=== PATIENT | female | born 1960 | race Caucasian/White ===

== ENCOUNTER 2017-02-19 05:50 | Inpatient (IN) | payer OTHER ==
[2017-02-19] MEDS ORDERED: CEFAZOLIN 2 GM/50 ML (PMX) 50 ML IVPB (06:00)
[2017-02-19] MEDS ORDERED: metroNIDAZOLE 500 MG/NS (PMX) 100 ML IVPB ×3 (06:00→12:30)
[2017-02-19] MEDS ORDERED: METHYLENE BLUE 1% 10 ML INJ (07:04)
[2017-02-19] MEDS ORDERED: VASOPRESSIN 20 UNITS INJ (07:04)
[2017-02-19] MEDS ORDERED: LIDOCAINE 2% (SDV) 5 ML INJ (07:41)
[2017-02-19] MEDS ORDERED: ROCURONIUM 50 MG INJ ×2 (07:41→09:12)
[2017-02-19] MEDS ORDERED: PROPOFOL 20 ML (07:41)
[2017-02-19] MEDS ORDERED: MIDAZOLAM 1 MG/ML 2 ML INJ (07:42)
[2017-02-19] MEDS ORDERED: D5-NS + KCL 20 MEQ 1,000 ML IV (08:00)
[2017-02-19] MEDS ORDERED: ROPIVACAINE 0.2% 20 ML VIAL (08:34)
[2017-02-19] MEDS ORDERED: CEFAZOLIN 1 GM INJ (08:46)
[2017-02-19] MEDS ORDERED: FAMOTIDINE 20 MG INJ (09:12)
[2017-02-19] MEDS ORDERED: DEXAMETHASONE 4 MG/ML 1 ML INJ (09:12)
[2017-02-19] MEDS ORDERED: ONDANSETRON 4 MG INJ ×2 (09:12→12:08)
[2017-02-19] MEDS ORDERED: ACETAMINOPHEN 1000MG/100ML IV 100 ML (09:15)
[2017-02-19] MEDS: THROMBIN 5000 UNIT VIAL (09:30)
[2017-02-19] MEDS ORDERED: SUGAMMADEX SODIUM 200 MG/2 ML VIAL IV (11:39)
[2017-02-19] MEDS ORDERED: HYDROmorphONE (0.2 MG/ML) 10ML SYG IV (12:08)
[2017-02-19] MEDS: ONDANSETRON 4 MG INJ IV (12:11)
[2017-02-19] MEDS: HYDROmorphONE (0.2 MG/ML) 10ML SYG IV ×2 (12:11→12:40)
[2017-02-19] MEDS ORDERED: CEFAZOLIN 1 GM in SOD CHLORIDE 0.9% 100 ML IVPB (12:30)
[2017-02-19] MEDS ORDERED: DIPHENHYDRAMINE 50 MG INJ IV (12:30)
[2017-02-19 12:40] LABS: ADD MAN DIFF? NO
[2017-02-19 12:43] LABS: WHITE BLOOD COUNT 6.8 10^3/ul (4.8-10.8)
[2017-02-19 12:43] LABS: BASOPHILS % 0.4 % (0.0-2.0); HEMATOCRIT 36.2 % (37.0-47.0); HEMOGLOBIN 12.3 g/dl (12.0-16.0); LYMPHOCYTES % 13.9 % (15.0-51.0); MEAN CORPUSCULAR HEMOGLOBIN 34.7 pg (29.0-33.0); MEAN CORPUSCULAR VOLUME 102.3 fl (82.0-101.0); MEAN PLATELET VOLUME 8.8 fl (7.4-10.4); MONOCYTE # 0.3 10^3/ul (0.3-0.9); MONOCYTES % 3.8 % (0.0-11.0); NEUTROPHIL # 5.6 10^3/ul (1.6-7.5); NEUTROPHILS % 81.6 % (39.0-77.0); PLATELET COUNT 346 10^3/UL (140-415); RED BLOOD COUNT 3.54 10^6/ul (4.20-5.40); RED CELL DISTRIBUTION WIDTH 15.6 % (11.5-14.5)
[2017-02-19 13:21] LABS: ANION GAP 14 (8-16); BLOOD UREA NITROGEN 13 mg/dl (7-20); CALCIUM 8.8 mg/dl (8.4-10.2); CARBON DIOXIDE 27 mmol/L (21-31); CHLORIDE 104 mmol/L (97-110); CREATININE 0.54 mg/dl (0.44-1.00); GLUCOSE 158 mg/dl (70-220); POTASSIUM 3.3 mmol/L (3.5-5.1); SODIUM 142 mmol/L (135-144)
[2017-02-19] MEDS: POTASSIUM CHLORIDE 20 MEQ in LACTATED RINGER'S 1,000 ML IV ×2 (15:59→19:44)
[2017-02-19] MEDS: CEFAZOLIN 1 GM/50 ML (PMX) 50 ML IVPB (17:01)
[2017-02-19] MEDS: HYDROmorphONE 0.5 MG/0.5 ML SYG IV ×3 (17:01→23:05)
[2017-02-19] MEDS: metroNIDAZOLE 500 MG/NS (PMX) 100 ML IVPB (18:05)
[2017-02-19] MEDS: FAMOTIDINE 20 MG INJ IV (20:46)
[2017-02-19] MEDS: POTASSIUM CHLORIDE 20 MEQ in DEXTROSE 5% 100 ML IVPB (20:47)
[2017-02-20] MEDS: CEFAZOLIN 1 GM/50 ML (PMX) 50 ML IVPB ×2 (00:09→09:06)
[2017-02-20] MEDS: metroNIDAZOLE 500 MG/NS (PMX) 100 ML IVPB ×2 (01:19→09:57)
[2017-02-20] MEDS: POTASSIUM CHLORIDE 20 MEQ in LACTATED RINGER'S 1,000 ML IV ×5 (02:28→20:45)
[2017-02-20 05:20] LABS: ADD MAN DIFF? NO
[2017-02-20 05:41] LABS: INR 1.15; PROTIME 14.9 Sec (11.9-14.9); PT RATIO 1.2
[2017-02-20 06:04] LABS: ALANINE AMINOTRANSFERASE 25 IU/L (13-69); ALBUMIN/GLOBULIN RATIO 0.96; ALKALINE PHOSPHATASE 66 IU/L (42-121); ANION GAP 12 (8-16); ASPARTATE AMINO TRANSFERASE 23 IU/L (15-46); BILIRUBIN,INDIRECT 0.4 mg/dl (0-1.1); BILIRUBIN,TOTAL 0.4 mg/dl (0.2-1.3); BLOOD UREA NITROGEN 16 mg/dl (7-20); CALCIUM 8.7 mg/dl (8.4-10.2); CARBON DIOXIDE 29 mmol/L (21-31); CHLORIDE 103 mmol/L (97-110); CREATININE 0.66 mg/dl (0.44-1.00); GLUCOSE 130 mg/dl (70-220); POTASSIUM 4.3 mmol/L (3.5-5.1); SODIUM 140 mmol/L (135-144); TOTAL PROTEIN 6.1 g/dl (6.1-8.1)
[2017-02-20] MEDS: HYDROmorphONE 0.5 MG/0.5 ML SYG IV ×5 (06:24→20:52)
[2017-02-20 07:46] LABS: WHITE BLOOD COUNT 11.7 10^3/ul (4.8-10.8)
[2017-02-20 07:46] LABS: BASOPHILS % 0.1 % (0.0-2.0); HEMATOCRIT 31.3 % (37.0-47.0); HEMOGLOBIN 10.5 g/dl (12.0-16.0); LYMPHOCYTES # 1.5 10^3/ul (0.8-2.9); LYMPHOCYTES % 12.6 % (15.0-51.0); MEAN CORPUSCULAR HEMOGLOBIN 34.2 pg (29.0-33.0); MEAN CORPUSCULAR HGB CONC 33.5 g/dl (32.0-37.0); MEAN PLATELET VOLUME 9.1 fl (7.4-10.4); MONOCYTE # 1.3 10^3/ul (0.3-0.9); MONOCYTES % 11.1 % (0.0-11.0); NEUTROPHIL # 8.9 10^3/ul (1.6-7.5); NEUTROPHILS % 75.9 % (39.0-77.0); PLATELET COUNT 309 10^3/UL (140-415); RED BLOOD COUNT 3.07 10^6/ul (4.20-5.40); RED CELL DISTRIBUTION WIDTH 16.1 % (11.5-14.5)
[2017-02-20 07:49] LABS: POSITIVE DIFF @See below
[2017-02-20] MEDS: FAMOTIDINE 20 MG INJ IV ×2 (09:11→20:44)
[2017-02-21] MEDS: POTASSIUM CHLORIDE 20 MEQ in LACTATED RINGER'S 1,000 ML IV ×2 (04:51→18:34)
[2017-02-21] MEDS: HYDROmorphONE 0.5 MG/0.5 ML SYG IV (04:53)
[2017-02-21 05:18] LABS: ADD MAN DIFF? NO
[2017-02-21 05:25] LABS: ABNORMAL IP MESSAGE 1; BASOPHILS % 0.2 % (0.0-2.0); EOSINOPHILS % 0.2 % (0.0-7.0); HEMATOCRIT 30.4 % (37.0-47.0); HEMOGLOBIN 10.3 g/dl (12.0-16.0); LYMPHOCYTES # 3.5 10^3/ul (0.8-2.9); LYMPHOCYTES % 21.1 % (15.0-51.0); MEAN CORPUSCULAR HEMOGLOBIN 34.7 pg (29.0-33.0); MEAN CORPUSCULAR HGB CONC 33.9 g/dl (32.0-37.0); MEAN CORPUSCULAR VOLUME 102.4 fl (82.0-101.0); MONOCYTE # 1.8 10^3/ul (0.3-0.9); MONOCYTES % 10.7 % (0.0-11.0); NEUTROPHIL # 11.2 10^3/ul (1.6-7.5); NEUTROPHILS % 67.3 % (39.0-77.0); PLATELET COUNT 270 10^3/UL (140-415); RED BLOOD COUNT 2.97 10^6/ul (4.20-5.40); RED CELL DISTRIBUTION WIDTH 15.7 % (11.5-14.5)
[2017-02-21 05:25] LABS: WHITE BLOOD COUNT 16.7 10^3/ul (4.8-10.8)
[2017-02-21 05:26] LABS: POSITIVE DIFF @See below
[2017-02-21 06:07] LABS: ANION GAP 10 (8-16); BLOOD UREA NITROGEN 10 mg/dl (7-20); CALCIUM 8.5 mg/dl (8.4-10.2); CARBON DIOXIDE 30 mmol/L (21-31); CHLORIDE 97 mmol/L (97-110); CREATININE 0.63 mg/dl (0.44-1.00); GLUCOSE 85 mg/dl (70-220); SODIUM 133 mmol/L (135-144)
[2017-02-21] MEDS: FAMOTIDINE 20 MG INJ IV ×2 (09:56→21:02)
[2017-02-21] MEDS: SOD CHLORIDE 0.9% 250 ML IV (12:48)
[2017-02-21] MEDS: SOD CHLORIDE 0.9% 1,000 ML IV (13:55)
[2017-02-21] MEDS: HYDROCODONE/APAP (5/325) TAB PO (13:55)
[2017-02-21 14:05] LABS: LACTIC ACID 1.2 mmol/L (0.5-2.0)
[2017-02-21] MEDS: KETOROLAC 30 MG INJ IV (14:42)
[2017-02-22] MEDS: HYDROmorphONE 0.5 MG/0.5 ML SYG IV ×3 (00:58→23:35)
[2017-02-22] MEDS: POTASSIUM CHLORIDE 20 MEQ in LACTATED RINGER'S 1,000 ML IV ×3 (01:32→13:52)
[2017-02-22 06:03] LABS: ADD MAN DIFF? NO
[2017-02-22 06:08] LABS: BASOPHILS % 0.3 % (0.0-2.0); EOSINOPHILS # 0.2 10^3/ul (0.0-0.5); EOSINOPHILS % 1.6 % (0.0-7.0); HEMOGLOBIN 9.1 g/dl (12.0-16.0); LYMPHOCYTES # 1.8 10^3/ul (0.8-2.9); LYMPHOCYTES % 16.4 % (15.0-51.0); MEAN CORPUSCULAR HGB CONC 33.7 g/dl (32.0-37.0); MEAN CORPUSCULAR VOLUME 103.8 fl (82.0-101.0); MEAN PLATELET VOLUME 9.2 fl (7.4-10.4); MONOCYTE # 1.2 10^3/ul (0.3-0.9); NEUTROPHIL # 7.7 10^3/ul (1.6-7.5); NEUTROPHILS % 70.2 % (39.0-77.0); PLATELET COUNT 232 10^3/UL (140-415); RED CELL DISTRIBUTION WIDTH 15.6 % (11.5-14.5)
[2017-02-22 06:08] LABS: WHITE BLOOD COUNT 10.9 10^3/ul (4.8-10.8)
[2017-02-22] MEDS: FAMOTIDINE 20 MG INJ IV ×2 (08:38→23:41)
[2017-02-22] MEDS: HYDROCODONE/APAP (5/325) TAB PO ×3 (08:43→21:14)
[2017-02-23] MEDS: HYDROCODONE/APAP (5/325) TAB PO ×5 (01:09→22:26)
[2017-02-23] MEDS: POTASSIUM CHLORIDE 20 MEQ in LACTATED RINGER'S 1,000 ML IV ×2 (01:09→09:52)
[2017-02-23 05:21] LABS: ADD MAN DIFF? NO
[2017-02-23 05:31] LABS: WHITE BLOOD COUNT 8.6 10^3/ul (4.8-10.8)
[2017-02-23 05:31] LABS: BASOPHILS % 0.2 % (0.0-2.0); EOSINOPHILS # 0.3 10^3/ul (0.0-0.5); EOSINOPHILS % 3.3 % (0.0-7.0); HEMATOCRIT 25.7 % (37.0-47.0); HEMOGLOBIN 8.8 g/dl (12.0-16.0); LYMPHOCYTES # 1.8 10^3/ul (0.8-2.9); LYMPHOCYTES % 21.2 % (15.0-51.0); MEAN CORPUSCULAR HEMOGLOBIN 34.9 pg (29.0-33.0); MEAN CORPUSCULAR HGB CONC 34.2 g/dl (32.0-37.0); MEAN PLATELET VOLUME 9.3 fl (7.4-10.4); MONOCYTE # 1.1 10^3/ul (0.3-0.9); MONOCYTES % 12.9 % (0.0-11.0); NEUTROPHIL # 5.3 10^3/ul (1.6-7.5); NEUTROPHILS % 62.2 % (39.0-77.0); PLATELET COUNT 253 10^3/UL (140-415); RED BLOOD COUNT 2.52 10^6/ul (4.20-5.40); RED CELL DISTRIBUTION WIDTH 15.1 % (11.5-14.5)
[2017-02-23 06:12] LABS: ANION GAP 10 (8-16); BLOOD UREA NITROGEN 9 mg/dl (7-20); CALCIUM 8.3 mg/dl (8.4-10.2); CARBON DIOXIDE 31 mmol/L (21-31); CHLORIDE 100 mmol/L (97-110); CREATININE 0.54 mg/dl (0.44-1.00); GLUCOSE 93 mg/dl (70-220); POTASSIUM 4.3 mmol/L (3.5-5.1); SODIUM 137 mmol/L (135-144)
[2017-02-23] MEDS: FAMOTIDINE 20 MG INJ IV ×2 (08:57→20:08)
[2017-02-24 06:16] LABS: ADD MAN DIFF? NO
[2017-02-24 06:21] LABS: WHITE BLOOD COUNT 8.4 10^3/ul (4.8-10.8)
[2017-02-24 06:21] LABS: BASOPHILS % 0.2 % (0.0-2.0); EOSINOPHILS # 0.2 10^3/ul (0.0-0.5); EOSINOPHILS % 2.4 % (0.0-7.0); HEMATOCRIT 29.9 % (37.0-47.0); HEMOGLOBIN 10.1 g/dl (12.0-16.0); LYMPHOCYTES # 2.1 10^3/ul (0.8-2.9); MEAN CORPUSCULAR HEMOGLOBIN 34.1 pg (29.0-33.0); MEAN CORPUSCULAR HGB CONC 33.8 g/dl (32.0-37.0); MONOCYTES % 11.7 % (0.0-11.0); NEUTROPHIL # 5.1 10^3/ul (1.6-7.5); NEUTROPHILS % 60.3 % (39.0-77.0); PLATELET COUNT 301 10^3/UL (140-415); RED BLOOD COUNT 2.96 10^6/ul (4.20-5.40); RED CELL DISTRIBUTION WIDTH 14.6 % (11.5-14.5)
[2017-02-24 07:05] LABS: ANION GAP 13 (8-16); BLOOD UREA NITROGEN 10 mg/dl (7-20); CALCIUM 8.6 mg/dl (8.4-10.2); CARBON DIOXIDE 31 mmol/L (21-31); CHLORIDE 99 mmol/L (97-110); CREATININE 0.67 mg/dl (0.44-1.00); GLUCOSE 97 mg/dl (70-220); POTASSIUM 4.3 mmol/L (3.5-5.1); SODIUM 139 mmol/L (135-144)
[2017-02-24] MEDS: FAMOTIDINE 20 MG INJ IV (08:28)
[2017-02-24] MEDS ORDERED: HYDROmorphONE 2 MG TAB PO (11:00)
[2017-02-24] MEDS: HYDROCODONE/APAP (5/325) TAB PO (11:31)
[2017-02-24] MEDS: HEPARIN (100 UNITS/ML) 5 ML SYG CATHETER (18:03)
[2017-02-24] MEDS ORDERED: FAMOTIDINE 20 MG TAB PO (21:00)
== END 2017-02-24 18:20 | disposition home or self-care (01) | DRG 749 ==
LOC: REC 05:50 → MS1 02-21 22:25
PROC: 0DBV0ZX Excision of Mesentery, Open Approach, Diagnostic (ICD-10-PCS; principal; 2017-02-19 07:30)
PROC: 0DBW0ZX Excision of Peritoneum, Open Approach, Diagnostic (ICD-10-PCS; 2017-02-19 07:30)
PROC: 0BBT0ZX Excision of Diaphragm, Open Approach, Diagnostic (ICD-10-PCS; 2017-02-19 07:30)
PROC: 0WBF0ZX Excision of Abdominal Wall, Open Approach, Diagnostic (ICD-10-PCS; 2017-02-19 07:30)
PROC: 0WBH0ZX Excision of Retroperitoneum, Open Approach, Diagnostic (ICD-10-PCS; 2017-02-19 07:30)
PROC: 07BD0ZX Excision of Aortic Lymphatic, Open Approach, Diagnostic (ICD-10-PCS; 2017-02-19 07:30)
DX: C56.9 Malignant neoplasm of unspecified ovary (principal); C79.9 Secondary malignant neoplasm of unspecified site; K74.60 Unspecified cirrhosis of liver; I95.9 Hypotension, unspecified; E87.6 Hypokalemia; Z79.899 Other long term (current) drug therapy; Z90.710 Acquired absence of both cervix and uterus; Z90.81 Acquired absence of spleen; Z90.79 Acquired absence of other genital organ(s); Z90.722 Acquired absence of ovaries, bilateral; R50.9 Fever, unspecified; K43.9 Ventral hernia without obstruction or gangrene
CPT/HCPCS: 71010; 80048; 80053; 82962; 83605; 85025; 85610; 86850; 86900; 86901; 86920; 87040; 87070; 87086; 88307; 88309; 88331; 88341; 88342

== ENCOUNTER 2017-04-20 13:01 | Inpatient (IN) | payer OTHER ==
[2017-04-20] MEDS ORDERED: NITROGLYCERIN (SL) 0.4 MG TAB SL (17:30)
[2017-04-20] MEDS: morphine 4 MG/ML VIAL IV (17:37)
[2017-04-20] MEDS: ONDANSETRON 4 MG INJ IV (17:37)
[2017-04-20] MEDS: ASPIRIN 81 MG TAB PO (17:37)
[2017-04-20] MEDS: NITROGLYCERIN 2% 1 GM OINT PKT TD (17:38)
[2017-04-20 18:09] LABS: ABNORMAL IP MESSAGE 1; HEMATOCRIT 34.1 % (37.0-47.0); HEMOGLOBIN 12.1 g/dl (12.0-16.0); INR 0.97; MEAN CORPUSCULAR HEMOGLOBIN 32.2 pg (29.0-33.0); MEAN CORPUSCULAR HGB CONC 35.5 g/dl (32.0-37.0); MEAN CORPUSCULAR VOLUME 90.7 fl (82.0-101.0); PLATELET COUNT 36 10^3/UL (140-415); RED BLOOD COUNT 3.76 10^6/ul (4.20-5.40); RED CELL DISTRIBUTION WIDTH 13.5 % (11.5-14.5)
[2017-04-20 18:09] LABS: WHITE BLOOD COUNT 2.3 10^3/ul (4.8-10.8)
[2017-04-20 18:10] LABS: POSITIVE DIFF @See below
[2017-04-20 18:11] LABS: ADD MAN DIFF? YES; PARTIAL THROMBOPLASTIN TIME 47.7 Sec (25.0-35.0); PATH REVIEW? YES
[2017-04-20 18:12] LABS: ANION GAP 14 (8-16); BLOOD UREA NITROGEN 17 mg/dl (7-20); CALCIUM 9.2 mg/dl (8.4-10.2); CARBON DIOXIDE 26 mmol/L (21-31); CHLORIDE 99 mmol/L (97-110); GLUCOSE 141 mg/dl (70-220); POTASSIUM 3.6 mmol/L (3.5-5.1); SODIUM 135 mmol/L (135-144)
[2017-04-20 18:17] LABS: D-DIMER 2245.38 ng/ml (<460)
[2017-04-20 18:23] LABS: TROPONIN-I < 0.012 ng/ml (0.00-0.12)
[2017-04-20] MEDS: SOD CHLORIDE 0.9% 1,000 ML IV (18:26)
[2017-04-20 18:59] LABS: BASOPHILS % (M) 1 % (0-2); LYMPHOCYTES #M 0.6 10^3/ul (0.8-2.9); LYMPHOCYTES % (M) 29 % (15-51); MONOCYTES % (M) 2 % (0-11); PLATELET ESTIMATE SIG DECREASED; PLATELET MORPHOLOGY COMMENT @See below; REACTIVE LYMPHOCYTES% (M) 1 % (0-0); SEGMENTED NEUTROPHILS (M) % 67 % (39-77); SMUDGE%M 2 % (0-0)
[2017-04-20] MEDS: IOHEXOL 350MG/ML 50 ML BTL (19:32)
[2017-04-20] MEDS: SOD CHLORIDE 0.9% 100 ML (20:14)
[2017-04-20] MEDS: IOHEXOL 100 ML (20:14)
[2017-04-20] MEDS: HYDROmorphONE 1 MG/ML SYG IV (21:16)
[2017-04-20] MEDS ORDERED: ONDANSETRON 4 MG INJ IV (21:30)
[2017-04-20] MEDS ORDERED: ACETAMINOPHEN 325 MG TAB PO (21:30)
[2017-04-20 23:27] LABS: CREATINE KINASE 27 IU/L (23-200)
[2017-04-20 23:40] LABS: CK INDEX 0.8
[2017-04-20 23:54] LABS: CK-MB < 0.22 ng/ml (0.0-2.4); TROPONIN-I < 0.012 ng/ml (0.00-0.12)
[2017-04-21 05:29] LABS: WHITE BLOOD COUNT 2.4 10^3/ul (4.8-10.8)
[2017-04-21 05:29] LABS: ABNORMAL IP MESSAGE 1; HEMATOCRIT 30.2 % (37.0-47.0); HEMOGLOBIN 10.6 g/dl (12.0-16.0); MEAN CORPUSCULAR HGB CONC 35.1 g/dl (32.0-37.0); MEAN CORPUSCULAR VOLUME 91.2 fl (82.0-101.0); MEAN PLATELET VOLUME 12.4 fl (7.4-10.4); PLATELET COUNT 51 10^3/UL (140-415); RED BLOOD COUNT 3.31 10^6/ul (4.20-5.40); RED CELL DISTRIBUTION WIDTH 13.7 % (11.5-14.5)
[2017-04-21 05:32] LABS: POSITIVE DIFF @See below
[2017-04-21 05:33] LABS: ADD MAN DIFF? YES
[2017-04-21 05:50] LABS: CREATINE KINASE 36 IU/L (23-200)
[2017-04-21 05:59] LABS: ANION GAP 11 (8-16); BLOOD UREA NITROGEN 14 mg/dl (7-20); CALCIUM 8.9 mg/dl (8.4-10.2); CARBON DIOXIDE 29 mmol/L (21-31); CHLORIDE 102 mmol/L (97-110); GLUCOSE 109 mg/dl (70-220); POTASSIUM 4.5 mmol/L (3.5-5.1); SODIUM 137 mmol/L (135-144)
[2017-04-21 06:02] LABS: CK INDEX 0.6
[2017-04-21 06:31] LABS: TROPONIN-I < 0.012 ng/ml (0.00-0.12)
[2017-04-21 06:39] LABS: CK-MB < 0.22 ng/ml (0.0-2.4); TROPONIN-I < 0.012 ng/ml (0.00-0.12)
[2017-04-21 07:35] LABS: ANISOCYTOSIS 1+ (0-0); LYMPHOCYTES % (M) 85 % (15-51); PLATELET ESTIMATE DECREASED; POLYCHROMASIA 1+ (0-0); REACTIVE LYMPHOCYTES% (M) 3 % (0-0); SEGMENTED NEUTROPHILS (M) % 12 % (39-77); SMUDGE%M 24 % (0-0)
[2017-04-21] MEDS: ENOXAPARIN 30 MG/0.3 ML SYG SC (08:35)
[2017-04-21] MEDS ORDERED: morphine 2 MG INJ IV (14:00)
[2017-04-21] MEDS ORDERED: ACETAMINOPHEN 500 MG TAB PO (14:00)
[2017-04-21] MEDS: HYDROCODONE/APAP (5/325) TAB PO ×2 (14:25→20:16)
[2017-04-22 10:16] LABS: WHITE BLOOD COUNT 1.7 10^3/ul (4.8-10.8)
[2017-04-22 10:16] LABS: ABNORMAL IP MESSAGE 1; HEMATOCRIT 37.3 % (37.0-47.0); HEMOGLOBIN 12.7 g/dl (12.0-16.0); MEAN PLATELET VOLUME 10.5 fl (7.4-10.4); RED BLOOD COUNT 3.97 10^6/ul (4.20-5.40); RED CELL DISTRIBUTION WIDTH 13.6 % (11.5-14.5)
[2017-04-22 10:39] LABS: ALANINE AMINOTRANSFERASE 23 IU/L (13-69); ALBUMIN 4.6 g/dl (3.3-4.9); ALBUMIN/GLOBULIN RATIO 1.15; ALKALINE PHOSPHATASE 107 IU/L (42-121); ANION GAP 18 (8-16); ASPARTATE AMINO TRANSFERASE 26 IU/L (15-46); BILIRUBIN,INDIRECT 0.3 mg/dl (0-1.1); BILIRUBIN,TOTAL 0.3 mg/dl (0.2-1.3); BLOOD UREA NITROGEN 15 mg/dl (7-20); CALCIUM 9.9 mg/dl (8.4-10.2); CARBON DIOXIDE 25 mmol/L (21-31); CHLORIDE 103 mmol/L (97-110); CHOL/HDL RATIO 3.1 RATIO; CHOLESTEROL 199 mg/dl (100-200); CREATININE 0.54 mg/dl (0.44-1.00); GLUCOSE 89 mg/dl (70-220); HDL CHOLESTEROL 63 mg/dl (37-92); LDL CHOLESTEROL,CALCULATED 110 mg/dl; POTASSIUM 4.8 mmol/L (3.5-5.1); SODIUM 141 mmol/L (135-144); TOTAL PROTEIN 8.6 g/dl (6.1-8.1); TRIGLYCERIDES 131 mg/dl (0-149)
[2017-04-22 10:55] LABS: POSITIVE DIFF @See below
[2017-04-22 11:15] LABS: ADD MAN DIFF? YES
[2017-04-22 11:19] LABS: PLATELET COUNT 14 10^3/UL (140-415)
[2017-04-22 11:23] LABS: PATH REVIEW? YES
[2017-04-22 13:42] LABS: BASOPHILS % (M) 0 % (0-2); LYMPHOCYTES #M 1.2 10^3/ul (0.8-2.9); LYMPHOCYTES % (M) 75 % (15-51); MONOCYTES % (M) 1 % (0-11); MYELOCYTES % (M) 0 % (0-0); PLATELET ESTIMATE SIG DECREASED; POLYCHROMASIA 3+ (0-0); REACTIVE LYMPHOCYTES #M 0.1 10^3/ul (0.0-0.0); REACTIVE LYMPHOCYTES% (M) 8 % (0-0); SEGMENTED NEUTROPHILS (M) % 16 % (39-77); SMUDGE%M 4 % (0-0); TARGET CELLS 2+ (0-0)
[2017-04-22] MEDS: SOD CHLORIDE 0.9% 250 ML IV* (14:22)
[2017-04-22] MEDS: HYDROCODONE/APAP (5/325) TAB PO ×2 (14:57→23:36)
[2017-04-22 21:01] LABS: TYPE AND SCREEN 1 1
[2017-04-23 05:30] LABS: WHITE BLOOD COUNT 1.7 10^3/ul (4.8-10.8)
[2017-04-23 05:30] LABS: ABNORMAL IP MESSAGE 1; HEMATOCRIT 30.1 % (37.0-47.0); HEMOGLOBIN 10.4 g/dl (12.0-16.0); MEAN CORPUSCULAR HEMOGLOBIN 31.5 pg (29.0-33.0); MEAN CORPUSCULAR HGB CONC 34.6 g/dl (32.0-37.0); MEAN CORPUSCULAR VOLUME 91.2 fl (82.0-101.0); MEAN PLATELET VOLUME 9.4 fl (7.4-10.4); PLATELET COUNT 81 10^3/UL (140-415); RED CELL DISTRIBUTION WIDTH 13.4 % (11.5-14.5)
[2017-04-23 05:35] LABS: ADD MAN DIFF? YES; POSITIVE DIFF @See below
[2017-04-23 05:57] LABS: ANION GAP 13 (8-16); BLOOD UREA NITROGEN 18 mg/dl (7-20); CALCIUM 9.3 mg/dl (8.4-10.2); CARBON DIOXIDE 30 mmol/L (21-31); CHLORIDE 104 mmol/L (97-110); CREATININE 0.61 mg/dl (0.44-1.00); GLUCOSE 96 mg/dl (70-220); POTASSIUM 4.1 mmol/L (3.5-5.1); SODIUM 143 mmol/L (135-144)
[2017-04-23 07:46] LABS: LYMPHOCYTES #M 1.6 10^3/ul (0.8-2.9); LYMPHOCYTES % (M) 98 % (15-51); PLATELET ESTIMATE DECREASED; POLYCHROMASIA 2+ (0-0); SEGMENTED NEUTROPHILS (M) % 2 % (39-77); SMUDGE%M 8 % (0-0)
[2017-04-23 16:58] LABS: PATH REVIEW CH
[2017-04-23] MEDS: HYDROCODONE/APAP (5/325) TAB PO (21:52)
[2017-04-24 05:42] LABS: WHITE BLOOD COUNT 1.9 10^3/ul (4.8-10.8)
[2017-04-24 05:42] LABS: ABNORMAL IP MESSAGE 1; HEMATOCRIT 30.8 % (37.0-47.0); HEMOGLOBIN 10.5 g/dl (12.0-16.0); MEAN CORPUSCULAR HEMOGLOBIN 31.4 pg (29.0-33.0); MEAN CORPUSCULAR HGB CONC 34.1 g/dl (32.0-37.0); MEAN CORPUSCULAR VOLUME 92.2 fl (82.0-101.0); MEAN PLATELET VOLUME 9.8 fl (7.4-10.4); PLATELET COUNT 59 10^3/UL (140-415); RED BLOOD COUNT 3.34 10^6/ul (4.20-5.40); RED CELL DISTRIBUTION WIDTH 13.2 % (11.5-14.5)
[2017-04-24 06:00] LABS: ANION GAP 13 (8-16); BLOOD UREA NITROGEN 23 mg/dl (7-20); CALCIUM 9.4 mg/dl (8.4-10.2); CARBON DIOXIDE 28 mmol/L (21-31); CHLORIDE 104 mmol/L (97-110); CREATININE 0.63 mg/dl (0.44-1.00); GLUCOSE 97 mg/dl (70-220); POTASSIUM 3.9 mmol/L (3.5-5.1); SODIUM 141 mmol/L (135-144)
[2017-04-24 06:48] LABS: ADD MAN DIFF? YES; POSITIVE DIFF @See below
[2017-04-24 09:27] LABS: BASOPHILS % (M) 1 % (0-2); EOSINOPHILS % (M) 3 % (0-7); GIANT THROMBO% (M) 2 % (0-0); LYMPHOCYTES #M 1.7 10^3/ul (0.8-2.9); LYMPHOCYTES % (M) 90 % (15-51); MONOCYTES % (M) 1 % (0-11); PLATELET ESTIMATE DECREASED; POLYCHROMASIA 3+ (0-0); SEGMENTED NEUTROPHILS (M) % 5 % (39-77)
[2017-04-24] MEDS: HEPARIN (100 UNITS/ML) 5 ML SYG CATHETER ×2 (17:00)
== END 2017-04-24 17:33 | disposition home or self-care (01) | DRG 313 ==
LOC: E/R 13:01 → MS3 21:15
PROC: 30233R1 Transfusion of Nonautologous Platelets into Peripheral Vein, Percutaneous Approach (ICD-10-PCS; principal; 2017-04-22)
DX: R07.9 Chest pain, unspecified (principal); D61.810 Antineoplastic chemotherapy induced pancytopenia; C56.9 Malignant neoplasm of unspecified ovary; M48.02 Spinal stenosis, cervical region; I10 Essential (primary) hypertension; R06.02 Shortness of breath
CPT/HCPCS: 36415; 36430; 71045; 71275; 72142; 80048; 80053; 80061; 82550; 82553; 84484; 85025; 85378; 85610; 85730; 86850; 86900; 86901; 93005; 93306; 96374; 96375; 99285-25

== ENCOUNTER 2018-02-20 12:40 | Observation (INO) | payer OTHER ==
[2018-02-20 14:26] LABS: ADD MAN DIFF? NO
[2018-02-20 14:28] LABS: BASOPHIL # 0.1 10^3/ul (0.0-0.1); BASOPHILS % 0.4 % (0.0-2.0); EOSINOPHILS % 0.3 % (0.0-7.0); HEMATOCRIT 39.4 % (37.0-47.0); HEMOGLOBIN 13.6 g/dl (12.0-16.0); LYMPHOCYTES # 2.4 10^3/ul (0.8-2.9); LYMPHOCYTES % 19.3 % (15.0-51.0); MEAN CORPUSCULAR HGB CONC 34.5 g/dl (32.0-37.0); MEAN CORPUSCULAR VOLUME 112.9 fl (82.0-101.0); MEAN PLATELET VOLUME 8.7 fl (7.4-10.4); MONOCYTE # 1.4 10^3/ul (0.3-0.9); MONOCYTES % 10.8 % (0.0-11.0); NEUTROPHIL # 8.7 10^3/ul (1.6-7.5); NEUTROPHILS % 68.9 % (39.0-77.0); NUCLEATED RED BLOOD CELLS # 0.6 10^3/ul (0.0-0.0); NUCLEATED RED BLOOD CELLS% 4.8 /100WBC (0.0-0.0); PLATELET COUNT 376 10^3/UL (140-415); RED BLOOD COUNT 3.49 10^6/ul (4.20-5.40); RED CELL DISTRIBUTION WIDTH 15.1 % (11.5-14.5)
[2018-02-20 14:28] LABS: WHITE BLOOD COUNT 12.6 10^3/ul (4.8-10.8)
[2018-02-20 14:49] LABS: INR 0.99; PROTIME 13.2 Sec (11.9-14.9)
[2018-02-20 14:53] LABS: ALANINE AMINOTRANSFERASE 13 IU/L (13-69); ALBUMIN 4.4 g/dl (3.3-4.9); ALBUMIN/GLOBULIN RATIO 1.07; ALKALINE PHOSPHATASE 113 IU/L (42-121); ANION GAP 12 (5-13); ASPARTATE AMINO TRANSFERASE 23 IU/L (15-46); BILIRUBIN,INDIRECT 0.5 mg/dl (0-1.1); BILIRUBIN,TOTAL 0.5 mg/dl (0.2-1.3); BLOOD UREA NITROGEN 10 mg/dl (7-20); CALCIUM 9.4 mg/dl (8.4-10.2); CARBON DIOXIDE 31 mmol/L (21-31); CHLORIDE 99 mmol/L (97-110); CREATINE KINASE 30 IU/L (23-200); CREATININE 0.64 mg/dl (0.44-1.00); Estimated GFR > 60 mL/min (>60); GLUCOSE 124 mg/dl (70-220); POTASSIUM 3.7 mmol/L (3.5-5.1); SODIUM 142 mmol/L (135-144); TOTAL PROTEIN 8.5 g/dl (6.1-8.1)
[2018-02-20 15:04] LABS: B-TYPE NATRIURETIC PEPTIDE 206 PG/ML (0-125); CK INDEX 0.7; CK-MB < 0.22 ng/ml (0.0-2.4); TROPONIN-I < 0.012 ng/ml (0.000-0.120)
[2018-02-20] MEDS: ASPIRIN 325 MG TAB PO ×2 (15:16→15:19)
[2018-02-20] MEDS: ONDANSETRON 4 MG INJ IV (15:19)
[2018-02-20] MEDS: morphine 4 MG/ML VIAL IV (15:19)
[2018-02-20] MEDS: IOHEXOL 100 ML (15:27)
[2018-02-20] MEDS: SOD CHLORIDE 0.9% 100 ML (15:27)
[2018-02-20] MEDS ORDERED: ONDANSETRON 4 MG INJ IV (15:30)
[2018-02-20] MEDS ORDERED: ACETAMINOPHEN 325 MG TAB PO (15:30)
[2018-02-20] MEDS ORDERED: NACL 0.9% 3 ML SYG IV (17:00)
[2018-02-20] MEDS: HYDROCODONE/APAP (5/325) TAB PO (17:46)
[2018-02-21 02:08] LABS: TROPONIN-I < 0.012 ng/ml (0.000-0.120)
[2018-02-21 05:47] LABS: ADD MAN DIFF? NO
[2018-02-21 05:51] LABS: WHITE BLOOD COUNT 8.1 10^3/ul (4.8-10.8)
[2018-02-21 05:51] LABS: BASOPHIL # 0.1 10^3/ul (0.0-0.1); BASOPHILS % 0.6 % (0.0-2.0); EOSINOPHILS # 0.2 10^3/ul (0.0-0.5); HEMATOCRIT 34.2 % (37.0-47.0); HEMOGLOBIN 11.8 g/dl (12.0-16.0); LYMPHOCYTES # 1.7 10^3/ul (0.8-2.9); LYMPHOCYTES % 20.7 % (15.0-51.0); MEAN CORPUSCULAR HEMOGLOBIN 38.8 pg (29.0-33.0); MEAN CORPUSCULAR HGB CONC 34.5 g/dl (32.0-37.0); MEAN CORPUSCULAR VOLUME 112.5 fl (82.0-101.0); MEAN PLATELET VOLUME 9.4 fl (7.4-10.4); MONOCYTE # 0.9 10^3/ul (0.3-0.9); MONOCYTES % 11.2 % (0.0-11.0); NEUTROPHIL # 5.3 10^3/ul (1.6-7.5); NEUTROPHILS % 65.3 % (39.0-77.0); NUCLEATED RED BLOOD CELLS # 0.6 10^3/ul (0.0-0.0); NUCLEATED RED BLOOD CELLS% 7.3 /100WBC (0.0-0.0); PLATELET COUNT 357 10^3/UL (140-415); RED BLOOD COUNT 3.04 10^6/ul (4.20-5.40); RED CELL DISTRIBUTION WIDTH 15.3 % (11.5-14.5)
[2018-02-21 06:14] LABS: TROPONIN-I < 0.012 ng/ml (0.000-0.120)
[2018-02-21 06:17] LABS: ALANINE AMINOTRANSFERASE 19 IU/L (13-69); ALBUMIN 3.5 g/dl (3.3-4.9); ALBUMIN/GLOBULIN RATIO 1.16; ALKALINE PHOSPHATASE 94 IU/L (42-121); ANION GAP 9 (5-13); ASPARTATE AMINO TRANSFERASE 20 IU/L (15-46); BILIRUBIN,INDIRECT 0.6 mg/dl (0-1.1); BILIRUBIN,TOTAL 0.6 mg/dl (0.2-1.3); BLOOD UREA NITROGEN 13 mg/dl (7-20); CALCIUM 9.3 mg/dl (8.4-10.2); CARBON DIOXIDE 31 mmol/L (21-31); CHLORIDE 101 mmol/L (97-110); CREATININE 0.61 mg/dl (0.44-1.00); Estimated GFR > 60 mL/min (>60); GLUCOSE 109 mg/dl (70-220); SODIUM 141 mmol/L (135-144); TOTAL PROTEIN 6.5 g/dl (6.1-8.1)
[2018-02-21 08:04] LABS: HEMOGLOBIN A1C 4.9 % (0-5.9)
[2018-02-21] MEDS: OLAPARIB PO (09:00)
[2018-02-21] MEDS: HYDROCODONE/APAP (5/325) TAB PO (10:49)
== END 2018-02-21 15:55 | disposition home or self-care (01) ==
LOC: E/R 12:40 → 6WM 15:14
DX: M54.2 Cervicalgia (principal); R07.9 Chest pain, unspecified; C56.9 Malignant neoplasm of unspecified ovary
CPT/HCPCS: 36415; 71045; 71275; 80053; 82550; 82553; 83036; 83880; 84484; 85025; 85610; 85730; 93005; 99285-25; G0378